=== PATIENT | male | born 2000 | race Caucasian/White ===

== ENCOUNTER → 2021-07-21 | Outpatient (CLI) | payer OTHER ==
[2021-07-21 12:53] LABS: HEMOGLOBIN 12.3 gm/dl (14.0-17.5); RED BLOOD COUNT 3.98 M/UL (4.20-5.50); WHITE BLOOD COUNT 5.1 K/UL (4.5-11.0)
[2021-07-21 13:22] LABS: BUN/CREATININE RATIO 11 (0-10)
== END ==
LOC: LAB 10:51
PROVIDERS: Internal Medicine
DX: G40.813 Lennox-Gastaut syndrome, intractable, with status epilepticus (principal); D64.9 Anemia, unspecified; E07.9 Disorder of thyroid, unspecified; G47.9 Sleep disorder, unspecified
CPT/HCPCS: 36415; 36591; 80053; 82728; 83036; 83540; 84439; 84443; 84480; 85027